=== PATIENT | female | born 1985 | race Caucasian/White ===

== ENCOUNTER 2025-08-14 21:03 | Emergency (ER) | payer OTHER ==
[~2025-08-14] VITALS: Ht 160 cm; Wt 64.0 kg
[2025-08-14 21:15] VITALS: O2SAT 100
[2025-08-14] MEDS: METOCLOPRAMIDE HCL 10MG TABLET PO ONE (22:45)
[2025-08-14] MEDS: ACETAMINOPHEN 500MG TABLET PO ONE (23:06)
[2025-08-15] MEDS ORDERED: LIDO-53 TP (01:14)
[2025-08-15] MEDS ORDERED: NAPR-1176 MT (01:14)
[2025-08-15 01:15] VITALS: BP 128/71; PULSE 85; RESP 18; TEMP 36.7; O2SAT 100
== END 2025-08-15 01:15 | disposition home or self-care (01) ==
LOC: ER 21:03
DX: S02.2XXA Fracture of nasal bones, initial encounter for closed fracture (principal); I10 Essential (primary) hypertension; Z79.1 Long term (current) use of non-steroidal anti-inflammatories (NSAID); Z88.5 Allergy status to narcotic agent; W01.198A Fall on same level from slipping, tripping and stumbling with subsequent striking against other object, initial encounter; Y93.01 Activity, walking, marching and hiking; Y92.89 Other specified places as the place of occurrence of the external cause; Y99.8 Other external cause status
CPT/HCPCS: 99284; 70450; 70486; J8597